=== PATIENT | female | born 1960 | race Caucasian/White ===

== ENCOUNTER → 2021-02-01 21:55 | Outpatient (CLI) | payer OTHER, SELFPAY ==
[2021-02-01 16:32] VITALS: BMI 41.2
[2021-02-01 22:18] LABS: Absolute Lymphocyte Count 1.64 X10^3/uL (0.83-4.51); Absolute Neutrophil Count 4.5 X10^3/uL (2.0-7.7); Basophil# 0.06 X10^3/uL; Basophil% 0.9 % (0-1); Eosinophil# 0.18 X10^3/uL; Eosinophils% 2.6 % (0-5); Hematocrit 35.1 % (37-47); Lymphocyte # 1.64 X10^3/ul (4.0); Lymphocyte % 23.9 % (19-41); Mean Corp Hgb Conc 31.3 g/dL (32-36); Mean Corpuscular Hgb 28.1 pg (27.0-32.0); Mean Corpuscular Volume 89.8 fL (81-99); Mean Platelet Vol. 11.9 fl (6.2-12.0); Monocyte# 0.49 X10^3/uL; Monocyte% 7.1 % (0-10); NRBC Flagged by Analyzer 0 % (0-5); Neutrophil # 4.48 X10^3/uL (2.7-7.7); Neutrophil % 65.4 % (47-70); Platelet Count 301 K/mm3 (150-450); RBC Distribution Width CV 13.7 % (11.6-14.6); RBC Distribution Width SD 45.1 fl (35.1-43.9); Red Blood Count 3.91 M/mm3 (4.2-5.4); White Blood Count 6.9 K/mm3 (4.4-11.0)
[2021-02-01 22:37] LABS: AST(SGOT) 50 U/L (15-37); Alanine Aminotransfer ALT/SGPT 31 U/L (13-56); Albumin, Serum 3.4 g/dL (3.2-5.0); Alkaline Phosphatase 64 U/L (45-117); Anion Gap 5 (5-15); BUN 16 mg/dL (7-18); BUN/Creat Ratio 15.2 RATIO (10-20); Chloride 105 mmol/L (98-107); Cholesterol 243 mg/dL (200); Creatinine, Serum 1.05 mg/dL (0.55-1.02); EST Glomerular Filtration Rate 56 mL/min (>60); Est Glom Filt Rate - Afr Amer 68 mL/min (>60); Globulin 3.5 g/dL (2.2-4.2); Glucose 103 mg/dL (74-106); High Density Lipoprotein 89 mg/dL; Magnesium 1.8 mg/dL (1.6-2.6); Potassium 3.9 mmol/L (3.5-5.1); Protein, Total 6.9 g/dL (6.4-8.2); Sodium Level 139 mmol/L (136-145); Triglycerides 106 mg/dL; Very Low Density Lipoprotein 21 mg/dL (5-40)
== END ==
PROVIDERS: PCP Family Medicine; Visit Provider Nurse Practitioner
DX: I10 Essential (primary) hypertension (principal); R25.2 Cramp and spasm
CPT/HCPCS: 80053; 80061; 83735; 85025